=== PATIENT | male | born 1975 | race Caucasian/White ===

== ENCOUNTER 2021-06-07 21:17 | Emergency (ER) | payer OTHER, SELFPAY ==
--- NOTE | ~2021-06-07 | CT_ITS ---
EXAMINATION: CT abdomen pelvis wo con DATE: 06/08/2021 02:58 INDICATION: Nephrolithiasis and left flank pain. TECHNIQUE: Computed tomography (CT) of the abdomen and pelvis was performed without intravenous contr ast. Automated exposure control and iterative reconstruction technique were employed. The dose-length product was 248.58 mGy-cm. COMPARISON: None FINDINGS: Mild dependent atelectasis in the bilateral lower lobes. Heart size is normal. No pericardial or pleu ral effusion. Mild diffuse hepatic steatosis. Gallbladder, spleen, pancreas and bilateral adrenal gla nds are normal. 4 mm obstructing stone at the proximal most left ureter with mild left hydronephrosis . There are couple additional nonobstructing 1 mm stones in the left kidney. Mild left perinephric st randing. Right kidney and ureter are normal with no urolithiasis or hydronephrosis. Bladder is normal . There are couple colonic diverticula without adjacent inflammatory change to suggest diverticular c olitis. Small bowel and appendix are normal. No free intraperitoneal gas or fluid. No pathologically enlarged abdominal or pelvic lymphadenopathy. Mild bilateral hip and sacroiliac osteoarthritis. IMPRESSION: 1. Left nephrolithiasis with obstructing 4 mm proximal left ureteral stone. Reviewed, dictated and finalized at location B. AGE INSPECTOR
[2021-06-07 21:30] VITALS: BP 115/79; PULSE 83; RESP 20; TEMP 36.6; O2SAT 100
[2021-06-07 23:16] VITALS: BP 122/78; PULSE 76; TEMP 36; O2SAT 98
[2021-06-08] MEDS: MORPHINE SULFATE (*CRX) 4 MG/ML INJ IV PUSH (01:54)
[2021-06-08] MEDS: ONDANSETRON INJ 4 MG/2 ML VIAL IV PUSH ×2 (01:55→02:43)
[2021-06-08] MEDS: SODIUM CHLORIDE 0.9% IV 1,000 ML 999 ML IV CONT (01:55)
[2021-06-08 02:23] LABS: Alanine Aminotransferase 67 U/L (4-50); Albumin Level 4.9 g/dL (3.5-5.1); Alkaline Phosphatase 64 U/L (38-126); Anion Gap 9 mmol/L (8-16); Aspartate Amino Transferase 39 U/L (17-59); Bilirubin,Total 0.7 mg/dL (0.2-1.3); Blood Urea Nitrogen 21 mg/dL (9-20); Calcium 9.9 mg/dL (8.4-10.2); Carbon Dioxide 27 mmol/L (22-30); Chloride 103 mmol/L (98-107); Estimated CRCL calculation 63 ml/min; Estimated Glomerular Filt Rate 55; Glucose 133 mg/dL (65-110); Lipase 89 U/L (23-300); Potassium 4.7 mmol/L (3.4-5.0); Sodium 139 mmol/L (137-145)
[2021-06-08 02:24] LABS: Basophils Percent Auto 0.2 % (0.2-1.2); Eosinophils Percent Auto 0.1 % (0-4.4); Hematocrit 45.6 % (42.0-52.0); Hemoglobin 15.4 g/dL (14.0-18.0); Immature Granulocyte Absolute 0.05 K/mm3 (0.00-0.031); Immature Granulocyte Percent A 0.5 % (0-0.5); Lymphocytes Absolute Auto 0.69 K/mm3 (0.9-3.2); Mean Corpuscular HGB Conc 33.8 g/dl (32-36); Mean Corpuscular Hemoglobin 29.7 pg (26-34); Mean Platelet Volume 9.9 fl (7.4-10.4); Monocytes Absolute Auto 0.4 K/mm3 (0.1-0.6); Monocytes Percent Auto 3.7 % (2.6-8.5); Neutrophils Absolute Auto 8.7 K/mm3 (1.3-6.7); Neutrophils Percent Auto 88.5 % (45.5-73.1); Platelet Count Result 270 k/mm3 (150-375); Red Blood Count 5.18 M/mm3 (4.6-6.20); Red Cell Distribution Width 12.4 % (11.5-14.5); White Blood Count 9.8 K/mm3 (4.5-10.0)
[2021-06-08] MEDS: HYDROmorphone HCL INJ (*CRX) 1 MG/ML SYR IV PUSH ×2 (02:43→05:12)
--- NOTE | 2021-06-08 03:53 | ED.GENADULT ---
HPI - General Adult General Chief complaint: Abdominal Pain Stated complaint: lt flank pain Time Seen by Provider: 06/08/21 01:28 History of Present Illness HPI narrative: Patient 45-year-old gentleman who presents the emergency department with chief complaint of left flank pain. Patient reports he has history of kidney stones and reports this evening he started having pain in the left flank area that radiates down into his left groin area patient states it feels as though he has been kicked in his genitalia the patient states that the pain is not improved by anything and reports that he is had some nausea and vomiting with it as well. Patient states this has a different sensation than her previous stone where he did not have the sensation that radiated down into his genitalia. Review of Systems Review of Systems: A 10 system review of systems was completed on the patient and is negative except for what is stated in the HPI. Nursing and ancillary documentation was reviewed. PMFSH Comments Prior kidney stones Exam Narrative: GENERAL: Well-appearing, well-nourished, and in moderate pain distress. HEAD: Normocephalic, atraumatic. EYES: PERRLA and EOMI. ENT: Nares clear, no rhinorrhea or epistaxis. Mucous membranes moist. NECK: Supple. CHEST: Clear to auscultation. No respiratory distress. HEART: Regular rate and rhythm. No murmur heard. Normal peripheral pulses. ABDOMEN: Soft, nontender, nondistended, normal active bowel sounds. EXTREMITIES: Normal range of motion. No edema. SKIN: Warm, dry, no rash. NEURO: No focal deficits. Alert and oriented x3. PSYCH: Normal mood and affect. Course Course Emergency Course: CT scan shows a 5 mm proximal kidney stone on the left Vital Signs Vital signs: Vital Signs Temperature 36.6 C 06/07/21 21:30 Pulse Rate 83 06/07/21 21:30 Respiratory Rate 20 06/07/21 21:30 Blood Pressure 115/79 06/07/21 21:30 Pulse Oximetry 100 06/07/21 21:30 Temperature 36.0 C L 06/07/21 23:16 Pulse Rate 76 06/07/21 23:16 Respiratory Rate 20 06/07/21 21:30 Blood Pressure 122/78 06/07/21 23:16 Pulse Oximetry 98 06/07/21 23:16 Medical Decision Making Vital Signs Vital Signs: Vital Signs Temperature 36.6 C 06/07/21 21:30 Pulse Rate 83 06/07/21 21:30 Respiratory Rate 20 06/07/21 21:30 Blood Pressure 115/79 06/07/21 21:30 Pulse Oximetry 100 06/07/21 21:30 Temperature 36.0 C L 06/07/21 23:16 Pulse Rate 76 06/07/21 23:16 Respiratory Rate 20 06/07/21 21:30 Blood Pressure 122/78 06/07/21 23:16 Pulse Oximetry 98 06/07/21 23:16 Lab Data Result diagrams: 06/08/21 01:56 06/08/21 01:56 Labs: Lab Results 06/08/21 06/08/21 06/08/21 Range/Units 01:56 01:56 04:27 WBC 9.8 (4.5-10.0) K/mm3 RBC 5.18 (4.6-6.20) M/mm3 Hgb 15.4 (14.0-18.0) g/dL Hct 45.6 (42.0-52.0) % MCV 88.0 (80-100) fl MCH 29.7 (26-34) pg MCHC 33.8 (32-36) g/dl RDW 12.4 (11.5-14.5) % Plt Count 270 (150-375) k/mm3 MPV 9.9 (7.4-10.4) fl Immature Gran % (Auto) 0.5 (0-0.5) % Neut % (Auto) 88.5 H (45.5-73.1) % Lymph % (Auto) 7.0 L (18.3-44.2) % [place] % (Auto) 3.7 (2.6-8.5) % Eos % (Auto) 0.1 (0-4.4) % Baso % (Auto) 0.2 (0.2-1.2) % Lymph # (Auto) 0.69 L (0.9-3.2) K/mm3 [place] # (Auto) 0.4 (0.1-0.6) K/mm3 Eos # (Auto) 0.0 (0-0.3) K/mm3 Baso # (Auto) 0.0 (0.0-0.1) K/mm3 Abs Immat Gran (auto) 0.05 H (0.00-0.031) K/mm3 Absolute Neuts (auto) 8.7 H (1.3-6.7) K/mm3 Absolute Nucleated RBC 0.0 (0.0-0.012) K/mm3 Nucleated RBC % 0.0 (0.0-0.2) % Sodium 139 (137-145) mmol/L Potassium 4.7 (3.4-5.0) mmol/L Chloride 103 (98-107) mmol/L Carbon Dioxide 27 (22-30) mmol/L Anion Gap 9 (8-16) mmol/L BUN 21 H (9-20) mg/dL Creatinine 1.40 H (0.7-1.3) mg/dL Estim Creat Clear Calc 63 ml/min Estimated GFR 55 L (5
[2021-06-08 04:49] LABS: Add Urine Microscopic? YES; Appearance Urine Cloudy (Clear); Bacteria Urine Trace /hpf; Bilirubin Urine Negative (Negative); Blood Urine 3+ (Negative); Color Urine Yellow (Yellow); Glucose Urine UA Negative (Negative); Ketones Urine 1+ mg/dL (Negative); Leukocyte Esterase Ur Negative LEU/UL (Negative); Mucus Urine Few /lpf; Nitrate Urine Negative (Negative); Protein Urine 2+ mg/dL (Negative); RBC Urine >75 /hpf (0-2); Specific Grav Ur 1.026 (1.001-1.035); Squamous Epithelial Cell Urine Rare /hpf (Few)
[2021-06-08 06:12] VITALS: PULSE 67; RESP 18
== END 2021-06-08 06:12 | disposition home or self-care (01) ==
PROVIDERS: Emergency Provider Emergency Medicine
DX: N20.2 Calculus of kidney with calculus of ureter (principal); Z87.442 Personal history of urinary calculi
CPT/HCPCS: 36415; 74176; 80053; 81001; 83690; 85025; 87077; 87086; 87088; 87186; 96361; 96374; 96375; 96376; 99284; J1170; J2270; J2405; J7030

== ENCOUNTER 2021-06-22 02:24 | Day surgery (SDC) | payer OTHER, SELFPAY ==
[2021-06-21 08:52] VITALS: BMI 25.7
--- NOTE | 2021-06-21 09:10 | PC.NURSE ---
Report to the Outpatient Waiting Room, entrance under the green pavilion located off [facility], at time 0730 on date 06/22/21. OR Time: 0930. - You will be asked a series of questions to screen for COVID 19 for your protection. - A mask is required within the hospital. - No visitors are allowed at this time. Preoperative COVID Testing Requirements: RAPID COVID DOS No COVID Test needed if: (proof is required; if not received patient will have Rapid Test prior to entry) - Patient has received COVID Vaccine at least 14 days prior to procedure date or - Patient has positive COVID test result within last 90 days of surgery date. COVID Test needed if above criteria is not met If not COVID vaccinated a COVID test must be conducted within 72 hours of surgery and patient is asked to isolate self from time of testing until procedure. You will go to the [facility] for your COVID testing. The [facility] Testing site is located at the corner of [address] [facility]. You will only be called if COVID results are positive and your surgeon may reschedule your elective surgery date. Patients may have clear liquids (water, carbonated beverages, clear teas, apple juice) until 3 hours prior to surgery with a maximum of 20 ounces. - No food from midnight until time of surgery Take the following medications with a SIP of water the morning of surgery: NONE Medications to discontinue per physician: N/A Date to take last dose: N/A Please no make-up, nail danish, hairspray, perfume, deodorant, or body powder the day of surgery. No jewelry (including any body piercings) or valuables the day of surgery, leave them at home. Please take a shower or bath the night before, or the morning of, surgery with an antibacterial soap. Wear comfortable, loose fitting clothing. - Jewelry must be removed prior to entering the operating room. Rings and piercings that are not removed may be cut off. - The hospital will not accept responsibility for valuables. - Please leave all valuables, including medications, at home the day of surgery. If you are going home after surgery, a licensed production truck driver must drive you home. - NO public transportation without another adult. - We recommend that an adult stay with you for 24 hours following discharge. - We also recommend that you do not drive, make important decision, drink alcoholic beverages, or take any drugs that were not prescribed by your health care provider for at least 24 hours after your discharge time. Follow any additional instructions given to you from your surgeon. Telephone instructions given to NIKOS MAYS and asked if any additional questions and then verbalized understanding. Patient advised to call surgeon office or pre surgery nurse liaison [phone] if any additional questions.
--- NOTE | 2021-06-21 14:49 | WPDANESEPPF ---
Anes - Initial Pre Proc Eval Procedure: Operation Date: 06/22/21 07:30 Proposed Procedures p Flexible Cystoscopy with Stent Removal - Quique Alvarado MD Date/Time: 06/21/21 14:49 Surgeon: Quique Alvarado MD Pre Op Diagnosis: retained ureteral stent Patient Data Age: 45 Gender: M Height: 1.8 m Weight: 83.91 kg Allergies Allergy/AdvReac Type Severity Reaction Status Date / Time codeine Allergy Unknown Verified 06/22/21 07:29 Home Medications Medication Instructions Recorded Confirmed Type finasteride 1 mg PO DAILY 06/21/21 06/22/21 History rosuvastatin [Crestor] 20 mg PO DAILY 06/21/21 06/22/21 History Patient hx anesthesia problems: none Family hx anesthesia problems: none Results Review: All pre-operative results and documents have been reviewed as part of the pre-operative evaluation. PMFSH Past Medical History Medical History Anxiety Hyperlipidemia Social History Social History Smoking status: Former smoker Smoking end date: 06/02/99 Additional smoking assessment comments: ONLY WHILE IN COLLEGE Alcohol intake: never Substance use: never Substance use type: does not use Spiritual care concerns: No Anes - Eval Final PreProcedure Day of Procedure 06/21/21 14:49 Patient weight: overweight Heart: regular rate and rhythm Lungs: clear to auscultation and normal air movement Airway: Mallampati scale class II Neurological: alert and oriented Last oral intake: >/= 8 hours ASA classification: II Emergent: no Anesthetic plan: proceed Anesthesia type and monitoring: general GIVS and standard monitoring Results Review: All pre-operative results and documents have been reviewed as part of the pre-operative evaluation. Informed Consent: The patient's anesthetic plan and its attendant risks and benefits were discussed with the patient/family/POA. Questions were solicited and answers provided to the satisfaction of the patient/family/POA.
--- NOTE | 2021-06-22 06:58 | ECG_ITS ---
Measurements Intervals [place] Rate: 101 P: 51 ID: 151 QRS: 61 QRSD: 92 T: 69 QT: 323 QTc: 420 Interpretive Statements SINUS TACHYCARDIA EARLY PRECORDIAL R/S TRANSITION NONSPECIFIC T-WAVE ABNORMALITY- HIGH LATERAL LEADS BASELINE WANDER- II, III BORDERLINE ECG Electronically Signed On 06-22-2021 7:54:58 PERFORMANCE TESTER by Jamshid Houser D.O.
--- NOTE | 2021-06-22 07:16 | WPDANESEPPF ---
Anes - Initial Pre Proc Eval Procedure: Operation Date: 06/22/21 07:30 Proposed Procedures p Flexible Cystoscopy with Stent Removal - Quique Alvarado MD Date/Time: 06/22/21 07:16 Surgeon: Quique Alvarado MD Pre Op Diagnosis: retained ureteral stent Patient Data Age: 45 Gender: M Height: 1.8 m Weight: 83.91 kg Allergies Allergy/AdvReac Type Severity Reaction Status Date / Time codeine Allergy Unknown Verified 06/21/21 08:51 Home Medications Medication Instructions Recorded Confirmed Type finasteride 1 mg PO DAILY 06/21/21 06/21/21 History rosuvastatin [Crestor] 20 mg PO DAILY 06/21/21 06/21/21 History Patient hx anesthesia problems: none Family hx anesthesia problems: none Results Review: All pre-operative results and documents have been reviewed as part of the pre-operative evaluation. PMFSH Past Medical History Medical History (Updated 06/21/21 @ 14:49 by Remi Shi DO) Anxiety Hyperlipidemia Social History Social History Smoking status: Former smoker Smoking end date: 06/02/99 Additional smoking assessment comments: ONLY WHILE IN COLLEGE Alcohol intake: never Substance use: never Substance use type: does not use Spiritual care concerns: No Anes - Eval Final PreProcedure Day of Procedure 06/22/21 07:16 Patient weight: normal Heart: regular rate and rhythm Lungs: clear to auscultation and normal air movement Airway: Mallampati scale class II Neurological: alert and oriented Last oral intake: >/= 8 hours ASA classification: II Emergent: no Anesthetic plan: proceed Anesthesia type and monitoring: general GIVS and LMA Results Review: All pre-operative results and documents have been reviewed as part of the pre-operative evaluation. Informed Consent: The patient's anesthetic plan and its attendant risks and benefits were discussed with the patient/family/POA. Questions were solicited and answers provided to the satisfaction of the patient/family/POA.
[2021-06-22 07:18] VITALS: BP 126/82; PULSE 96; RESP 20; TEMP 36.2; O2SAT 100
[2021-06-22] MEDS: LACTATED RINGERS 1,000 ML 30 ML IV CONT (07:30)
--- NOTE | 2021-06-22 07:32 | WPDHPUPDATE1 ---
History and Physical Update Update Date/Time: 06/22/21 07:32 History and Physical has been reviewed, including an updated exam of the patient. There are NO changes in the patient's condition. Risks, benefits, and alternatives have been discussed and questions answered. Patient agrees to proceed with procedure. Proceed with cysto with stent removal
--- NOTE | 2021-06-22 07:36 | WPDHPUPDATE1 ---
History and Physical Update Update Date/Time: 06/22/21 07:36 History and Physical has been reviewed, including an updated exam of the patient. There are NO changes in the patient's condition. Risks, benefits, and alternatives have been discussed and questions answered. Patient agrees to proceed with procedure. Proced with cysto with left stent placement.
--- NOTE | 2021-06-22 07:40 | P.HP_ITS ---
H&P: HPI History of Present Illness Date/Time: 06/22/21 07:40 Rashid is s/p left ureteral stent placement and is now here for cysto with left stent removal. Chief Complaint: retained left ureteral calculus Review of Systems Review of Systems: All systems reviewed & are unremarkable except as noted in HPI and below [facility] Past Medical History Medical History Anxiety Hyperlipidemia Social History Social History Smoking status: Former smoker Smoking end date: 06/02/99 Additional smoking assessment comments: ONLY WHILE IN COLLEGE Alcohol intake: never Substance use: never Substance use type: does not use Spiritual care concerns: No Meds Home Medications and Allergies Home Medications Medication Instructions Recorded Confirmed Type finasteride 1 mg PO DAILY 06/21/21 06/22/21 History rosuvastatin [Crestor] 20 mg PO DAILY 06/21/21 06/22/21 History Allergies Allergy/AdvReac Type Severity Reaction Status Date / Time codeine Allergy Unknown Verified 06/22/21 07:29 Exam Const: General: cooperative Chest: Chest palpation & inspection: normal inspection of the chest Resp: Effort & Inspection: normal respiratory effort GI: Inspection: normal to inspection GI Palp: Yes Soft to palpation Assessment and Plan Assessment and plan (1) Left ureteral calculus: Code(s): N20.1 - Calculus of ureter Status: Acute Assessment and Plan: Plan for cysto with left stent removal
[2021-06-22] MEDS: ceFAZolin 2 GM/D5W 50 ML 2 GM/50 ML BAG IVPB (07:49)
--- NOTE | 2021-06-22 08:04 | W.PM.PROC2 ---
Procedure Note - Detailed Date of Procedure 06/22/21 Pre-op Diagnosis retained ureteral stent Post-op Diagnosis same Procedure Performed Flexible cysto with left ureteral stent removal Surgeon Quique Alvarado MD Anesthesia MAC Description of Procedure Patient is taken the operative suite and correctly identified. Once IV sedation was obtained accomplished he was prepped and draped usual sterile fashion. Flexible ureteral scope was inserted into the bladder. The retained stent was visualized. This was grasped and removed in its entirety. 2% viscous lidocaine was inserted urethra. He is taken recovery stable condition. Will have my office schedule renal ultrasound in 1 month's time. Drains No Packing No Pathology none sent Complications No immediate complications Condition stable Disposition PACU
--- NOTE | 2021-06-22 08:06 | SUR.PREOP ---
0544-SPOKE W/PATIENT RE: RAPID COVID TEST-STATES DID NOT OBTAIN LAST EVENING, IS ON WAY TO HOSPITAL NOW. 0640-PT ARRIVED TO FACILITY, Francine RUSSELL RN OR CHARGE AWARE AND WILL FACILITATE ORDER. 0631-RAPID COVID TEST OBTAINED AND TAKEN TO LAB. 0649-RAPID RESULT BACK, PT. NOTIFIED AND WILL PROCEED INSIDE FACILITY.
[2021-06-22 08:07] VITALS: BP 100/62; PULSE 101; RESP 16; O2SAT 95
[2021-06-22 08:37] VITALS: BP 107/70; PULSE 96; RESP 16; O2SAT 97
[2021-06-22 09:07] VITALS: BP 102/67; PULSE 91; RESP 16; O2SAT 97
[2021-06-22 09:20] VITALS: BP 101/69; PULSE 90; RESP 16; O2SAT 98
== END 2021-06-22 09:30 | disposition home or self-care (01) ==
PROVIDERS: Visit Provider Urology
PROC: (CPT 52310; principal; 2021-06-22 07:30)
DX: Z46.6 Encounter for fitting and adjustment of urinary device (principal); N20.1 Calculus of ureter; E78.5 Hyperlipidemia, unspecified; F41.9 Anxiety disorder, unspecified; Z87.891 Personal history of nicotine dependence
CPT/HCPCS: 52310; 93005; A9270; J0690; J2250; J2704; J3010; J7030; J7120

== ENCOUNTER 2021-06-22 06:05 | Outpatient (CLI) | payer OTHER, SELFPAY ==
[2021-06-22 06:45] LABS: EDCOVIDSCREEN Negative (Negative)
== END 2021-06-22 06:06 | disposition home or self-care (01) ==
PROVIDERS: Visit Provider Urology
DX: R68.89 Other general symptoms and signs (principal); Z20.822 Contact with and (suspected) exposure to COVID-19
CPT/HCPCS: 87426; C9803

== ENCOUNTER → 2022-09-09 13:04 | Outpatient (CLI) | payer BC, SELFPAY ==
--- NOTE | ~2022-09-09 | US_ITS ---
Testicular ultrasound with doppler. Indication: Testicular pain. Technique: Real-time sonography the scrotum was performed. Color flow Doppler and Doppler spectral an alysis were performed. Findings: The testes are homogeneous in echotexture bilaterally. There is no evidence of an intrates ticular mass. The right testis measures 5.2 x 2.5 x 3.0 cm and the left 5.4 x 2.6 x 2.9 cm. There is color-flow seen to both testes. Arterial and venous spectral waveforms are seen in both testes. There is no sonographic evidence of torsion. 7 mm left epididymal head cyst or spermatocele noted. 5 mm ri ght epididymal head cyst or spermatocele noted. Impression: No testicular mass or torsion. Small bilateral epididymal head cysts or spermatoceles. Reviewed, dictated and finalized at [facility]. Impression: No testicular mass or torsion. Small bilateral epididymal head cysts or spermatoceles.
== END ==
PROVIDERS: Visit Provider Urology
DX: N50.819 Testicular pain, unspecified (principal); N50.3 Cyst of epididymis
CPT/HCPCS: 76870; 93976